=== PATIENT | female | born 1970 ===

== ENCOUNTER 2019-10-08 11:22 | Outpatient (REF) | payer SELFPAY ==
[2019-10-09 14:04] LABS: COVID-19 RT-PCR UVMMC Result Negative (Negative)
== END 2019-10-08 11:42 ==
LOC: LBN 11:22
PROVIDERS: Visit Provider Nurse Practitioner Adult Health
DX: Z11.59 Encounter for screening for other viral diseases (principal)
CPT/HCPCS: U0003